=== PATIENT | male | born 1985 | race African-American/Black ===

== ENCOUNTER 2020-09-01 12:56 | Emergency (ER) | payer OTHER, SELFPAY ==
[2020-09-01 13:16] VITALS: BP 163/96; PULSE 94; RESP 18; TEMP 37.2; O2SAT 97; BMI 35.4
[2020-09-01 14:27] VITALS: BP 138/78; PULSE 86; RESP 18; TEMP 36.6; O2SAT 98
--- NOTE | 2020-09-01 14:57 | ED.DENTAL ---
HPI - Dental/Oral General Chief complaint: Dental/Oral Stated complaint: DENTAL PAIN Time Seen by Provider: 09/01/20 14:52 History of Present Illness HPI Narrative: patient complains of dental pain in a left upper incisor tooth that is been going on for months and getting worse and worse, his tooth is broken and he has been unable to see the dentist but has an appointment next week, no fever no chills no difficulty breathing or swallowing no swelling under the tongue Related Data Previous Rx's Medication Instructions Recorded ibuprofen 600 mg PO Q6H PRN #20 tab 09/01/20 oxycodone-acetaminophen [Percocet] 1 - 2 tab PO Q6H PRN #20 tab 09/01/20 penicillin V potassium 500 mg PO QID 7 Days #28 tab 09/01/20 Allergies Allergy/AdvReac Type Severity Reaction Status Date / Time No Known Allergies Allergy Verified 09/01/20 13:15 Review of Systems Review of Systems: no trouble breathing no trouble swallowing no fever no chills no rash PMFSH Past Medical History Source: nursing notes reviewed Medical History (Updated 09/01/20 @ 14:56 by LIZZETH Griggs) Healthy adult male Social History Social History Alcohol intake: never Smoking Status: Current every day smoker Use of substances other than those prescribed or required for medical reasons: Yes Substance Use Type: Marijuana Substance Use Frequency: Weekly Advance Directives: No Advance Directives Information Provided: Yes Physical Exam Vital Signs: Vital Signs: Vital Signs Temp Pulse Resp BP Pulse Ox 09/01/20 14:27 98 F 86 18 138/78 98 09/01/20 13:16 99.0 F 94 18 163/96 H 97 Body Mass Index 35.4 patient is A&O x3, no acute distress Dental exam the left upper incisor is broken and very tender to touch but there is no swelling of the gum no fluctuant gum abscess no impairment of breathing and swallowing and no swelling under the tongue Pharynx there is no trismus, pharynx is normal is Ali swallow secretions Respiratory no respiratory distress Skin no rash Neuro A&O x3 Discharge Plan Discharge Clinical Impression: Dental caries Patient Disposition: Home, Self-Care Additional Instructions: follow with dentist as scheduled next week, return any concerns Prescriptions: New penicillin V potassium 500 mg tablet 500 mg PO QID 7 Days Qty: 28 RF: 0 ibuprofen 600 mg tablet 600 mg PO Q6H PRN (Reason: pain) Qty: 20 RF: 0 oxycodone-acetaminophen [Percocet] 5-325 mg tablet 1 - 2 tab PO Q6H PRN (Reason: pain) Qty: 20 RF: 0 Interventions: ED Discharge Assessment Last Done: 09/01/20 15:05 Discharge Date/Time: 09/01/20 15:06
[2020-09-01] MEDS: Ibuprofen 600 MG TABLET PO (15:03)
== END 2020-09-01 15:06 | disposition home or self-care (01) ==
PROVIDERS: Emergency Provider Emergency Medicine
DX: K02.9 Dental caries, unspecified (principal); F17.200 Nicotine dependence, unspecified, uncomplicated; Z71.6 Tobacco abuse counseling
CPT/HCPCS: 99283; 99284

== ENCOUNTER 2023-02-15 16:10 | Emergency (ER) | payer OTHER, SELFPAY | END 2023-02-15 19:55 | disposition left against medical advice (07) | LOC: HO.ED 19:53 | PROVIDERS: Emergency Provider Emergency Medicine | DX: R22.1 Localized swelling, mass and lump, neck (principal) ==